=== PATIENT | female | born 1990 | race Two or more races ===

== ENCOUNTER 2020-09-06 19:07 | Emergency (ER) | payer BC ==
[~2020-09-06] VITALS: Ht 157.5 cm; Wt 81.6 kg
[2020-09-06] MEDS ORDERED: WELLBUTRIN XL300 MG (19:27)
== END 2020-09-06 23:37 | disposition home or self-care (01) ==
LOC: ER 19:07
DX: R07.89 Other chest pain (principal); F41.8 Other specified anxiety disorders; Z03.818 Encounter for observation for suspected exposure to other biological agents ruled out